=== PATIENT | male | born 1950 | race Caucasian/White ===

== ENCOUNTER 2016-11-01 04:50 | Emergency (ER) | payer MEDICARE ==
[~2016-11-01] VITALS: Ht 182.9 cm; Wt 77.7 kg
[~2016-11-01 04:50] MED LIST: ASPI325T32 PO; ATOR10TA66 PO; AZEL137S11 NOSTRIL; CLOP75TA28 PO; ERGO500050 PO; FLUT16SP NOSTRIL; MELO-259 PO; MULT1CAP33 PO
[2016-11-01 04:53] VITALS: BP 130/57; PULSE 46; RESP 12; O2SAT 100
--- NOTE | 2016-11-01 05:04 | ED.REPORT ---
HPI-Chest Pain 40 and Over Date of Service Nov 01, 2016 ED Provider: Ronald Casanova MD Patient is a 66 year old male with a history of CVA who presents to the ED complaining of intermittent chest tightness onset two hours ago. Associated symptoms include a slow heart rate and pain in his finger tips. He denies shortness of breath, cough or fever. The patient reports that he woke up to go to the bathroom when he noticed a tightness that he thought might be heartburn but was concerned of a heart attack after Googling his symptoms. Here in the ED , he reports he is now pain free. Nursing Notes Stated Complaint: POSSIBLE MD Chief Complaint: Chest Pain Nursing Notes Reviewed: Yes Allergies: Coded Allergies: No Known Allergies (Unverified Allergy, Unknown, 11/07/15) Scheduled Aspirin (Aspirin) 325 Mg Tablet 325 MG PO evening Atorvastatin Calcium (Atorvastatin Calcium) 10 Mg Tablet 10 MG PO HS Azelastine HCl (Azelastine HCl) 137 Mcg/0.137 Ml [place].pump 2 SPRAYS NOSTRIL HS Clopidogrel (Clopidogrel) 75 Mg Tablet 75 MG PO DAILY Ergocalciferol (Vitamin D2) (Drisdol) 50,000 Unit Capsule 50,000 UNIT PO DAILY Fluticasone Propionate (Fluticasone Propionate Nasal) 16 Gm [place].susp 2 SPRAYS NOSTRIL HS Meloxicam (Meloxicam) 7.5 Mg Tablet 7.5 MG PO DAILY Multivitamin (Multivitamins) 1 Each Capsule 1 EACH PO DAILY General Time Seen by MD: 05:03 Chief Complaint Chest pain Hx Obtained From: Patient Arrived By: Walk-in Sudden in Onset?: Yes Onset Occurred: 1 - 4 hours ago Symptom Duration: Intermittent Location: : Substernal Quality: Pressure Radiation: : Does not radiate Severity: Current: No pain currently Severity: Maximum: Moderate Similar Sx Previous: No Past Medical History Past Medical History Notes: 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 Prostatectomy 9 years ago 2. T6-T11 fusion with 2 rods placed 5 years ago Family History Father from colon cancer at 56. Mother had multiple strokes. Smoking History Former Smoker Social History Alcohol Use: "Social" Drug Use: Denies drug use Other Social History: Good social support, Local resident Ambulatory Status Independent Review of Systems Constitutional: Denies: Chills, Fever Respiratory: Denies: Non-productive cough, Shortness of breath Cardiovascular: Reports: Chest pain Musculoskeletal: Reports: Extremity pain Skin: Denies Itching, Denies Rash Neurologic: Denies: Numbness, Problem walking, Weakness Complete sys rev & neg: except as marked. Physical Exam Initial Vital Signs Vital Signs (First) Date Time Temp Pulse Resp B/P Pulse Ox O2 Delivery O2 Flow Rate FiO2 11/01/16 04:53 36.4 46 12 130/57 100 Room Air Initial VS: Reviewed, Vital signs abnormal General/Constitutional: Awake, Alert, No acute distress Respiratory / Chest: Atraumatic, Breath sounds NL, Breath sounds = bilat, No respiratory distress Cardiovascular: Regular rhythm, Heart sounds NL Heart Rate / Rhythm: Positive: Bradycardia Abdomen: Atraumatic, Soft, Non-tender Lower Extremity / Pelvis / MS: Atraumatic, No edema Skin: Atraumatic, Color NL, No rash, Warm, Dry Neurologic: Oriented X3, Speech NL Psychiatric: Affect NL, Mood NL Head / Eyes: Atraumatic, Normocephalic, PERRL, EOMI Interpretation & Diagnostics Lab Results Interpretation Result Diagram: 11/01/16 0510 11/01/16 0510 Test 11/01/16 05:10 White Blood Count 4.9th/mm3 (3.8-10.1) Red Blood Count 4.27mil/mm3 (4.40-5.80) Hemoglobin 13.2g/dL (13.8-17.2) Hematocrit 38.0% (41.0-50.0) Mean Corpuscular Volume 89.0fL (81-100) Mean Corpuscular Hemoglobin 30.9pg (27.0-35.0) Mean Corpuscular Hemoglobin Concent 34.7% (32.0-37.0) Red Cell Distribution Width 12.4% (12.3-15.4) Platelet Count 143bil/L (150-400) Neutrophils (%) (Auto) 56.7% (40-74) Lymphocytes (%) (Auto) 23.6% (14-46) Monocytes (%) (Auto) 10.1% (4-12) Eosinophils (%) (Auto) 9.0% (0-5) Basophils (%) (Auto) 0.4% (0-3) Sodium Level 143mEq/L (134-144) Potassium Level 4.5mEq/L (3.5-5.2) Chloride Level 104mEq/L (97-108) Carbon Dioxide Level 26mmol/L (18-29) Blood Urea Nitrogen 16mg/dL (8-27) Creatinine 0.82mg/dL (0.76-1.27) Estimat Glomerular Filtration Rate 100mL/min (>59) Glucose Level 84mg/dL (60-99) Calcium Level 9.5mg/dL (8.5-10.1) Magnesium Level 2.1mg/dL (1.6-2.6) Total Bilirubin 0.5mg/dL (0.0-1.2) Aspartate Amino Transf (AST/SGOT) 27U/L (0-50) Alanine Aminotransferase (ALT/SGPT) 19U/L (0-44) Alkaline Phosphatase 73U/L (25-160) Troponin T 0.010ug/L (0.0-0.011) Total Protein 7.1g/dL (6.4-8.4) Albumin 4.3g/dL (3.4-5.0) Hold Caicedo Top Tube Received (Received) Lab values outside NL range: no clinical significance. ECG Interpretation ECG Interpretation: sinus bradycardia, rate 47 Time: 04:55 Interpreted by: ED physician X-Ray Chest Interpretation Chest Xray Interpretation: No acute findings Interpretation / Wet Read by: Wet read ED physician Re-Eval/Medical Decision Med Decision/Clinical Course 66-year-old male who presents with S pain, now resolved. Initial troponin and EKG are unremarkable. Repeat troponin is pending. His care will be turned over change of shift to Dr. Janes Medellin. Discharge & Departure Shift Change Sign-Out Patient Care Transferred: Yes Discussed Complaint(s): Yes Primary Impression: Chest pain Chest pain type: unspecified Qualified Code: R07.9 - Chest pain, unspecified Discharge Condition All VS Reviewed: Yes Condition: Stable Referrals: Alexandra Cortez MD (PCP) Care Transferred to: Dr. Medellin Care Transferred at: 06:00 Scribe Attestation Portions of this note were transcribed by Kiana Christianson. I, Dr. Casanova personally performed the history, physical exam and medical decision-making; I reviewed and confirmed the accuracy of the information in the transcribed note. Signed by: Aj Nelson, 11/01/16 copies to: Alexandra Cortez MD, Ronald Ribeiro MD Nov 01, 2016 05:04 Nae Christianson Nov 01, 2016 05:12
[2016-11-01 05:23] LABS: BASOPHILS % (AUTO) 0.4 % (0-3); MONOCYTES % (AUTO) 10.1 % (4-12); Mean Corpuscular Hemoglobin 30.9 pg (27.0-35.0); NEUTROPHILS % (AUTO) 56.7 % (40-74); Platelet Count 143 bil/L (150-400)
[2016-11-01 05:46] LABS: TROPONIN T 0.01 ug/L (0.0-0.011)
[2016-11-01 05:57] LABS: Magnesium 2.1 mg/dL (1.6-2.6)
[2016-11-01 06:27] VITALS: BP 115/55; PULSE 48; RESP 16; O2SAT 98
[2016-11-01 07:14] VITALS: BP 137/54; PULSE 48; RESP 15; O2SAT 100
[2016-11-01 08:48] VITALS: BP 127/55; PULSE 59; RESP 22; O2SAT 100
--- NOTE | 2016-11-01 14:43 | DRSVH ---
PROCEDURE: X-RAY CHEST ONE VIEW, PORTABLE ([id number]) INDICATIONS: CP TECHNIQUE: One view of the chest was acquired. COMPARISON: [facility], CR, XR CHEST 1VW (PORTABLE), 01/13/2016, 12:20. FINDINGS: Surgical changes and devices: Fixation hardware involving the mid thoracic spine.. Lungs and pleura: No pleural effusions or pneumothorax. Lungs are clear. Mediastinum: Mediastinal contours appear normal. Heart size is normal. Bones and chest wall: No suspicious bony lesions. Overlying soft tissues appear unremarkable. IMPRESSION: No acute cardiopulmonary disease. Dictated by: Bismark Domingo [facility] Interpreted: Manuel Arita MD on 11/01/2016 at 9:41 Approved by: Manuel Arita M.D. on 11/01/2016 at 14:41
== END 2016-11-01 08:49 | disposition home or self-care (01) ==
LOC: SED 04:50
DX: R07.89 Other chest pain (principal); Z86.73 Personal history of transient ischemic attack (TIA), and cerebral infarction without residual deficits; Z87.891 Personal history of nicotine dependence; Z85.46 Personal history of malignant neoplasm of prostate; Z90.79 Acquired absence of other genital organ(s); Z79.82 Long term (current) use of aspirin